=== PATIENT | female | born 1940 | race Hispanic/Latino ===

== ENCOUNTER 2021-01-09 14:18 | Outpatient (CLI) | payer MEDICARE, OTHER | END 2021-01-09 14:19 | disposition home or self-care (01) | LOC: CSHMAMMO 14:18 | PROVIDERS: ATTEND Internal Medicine | DX: Z12.31 Encounter for screening mammogram for malignant neoplasm of breast (principal); Z80.3 Family history of malignant neoplasm of breast | CPT/HCPCS: 77063; 77067 ==

== ENCOUNTER 2021-06-19 08:56 | Outpatient (CLI) | payer MEDICARE, OTHER ==
[2021-06-19 09:46] LABS: Estimated GFR-MDRD - POC Greater than 90
[2021-06-19] MEDS ORDERED: Iopamidol 300 61% 100 ML VIAL FS ONE (10:44)
== END 2021-06-19 08:57 | disposition home or self-care (01) ==
LOC: CSHCT 08:56
PROVIDERS: ATTEND Physician Assistant Medical
DX: R10.13 Epigastric pain (principal); R14.0 Abdominal distension (gaseous); K59.00 Constipation, unspecified; R10.31 Right lower quadrant pain; K44.9 Diaphragmatic hernia without obstruction or gangrene; N28.1 Cyst of kidney, acquired; K76.0 Fatty (change of) liver, not elsewhere classified
CPT/HCPCS: 74177; 82565; Q9967

== ENCOUNTER 2022-01-13 15:23 | Outpatient (CLI) | payer MEDICARE, OTHER | END 2022-01-13 15:24 | disposition home or self-care (01) | LOC: CSHMAMMO 15:23 | PROVIDERS: ATTEND Family Medicine | DX: Z12.31 Encounter for screening mammogram for malignant neoplasm of breast (principal); Z80.3 Family history of malignant neoplasm of breast | CPT/HCPCS: 77063; 77067 ==

== ENCOUNTER 2022-05-20 09:45 | Outpatient (CLI) | payer MEDICARE, OTHER | END 2022-05-20 09:46 | disposition home or self-care (01) | LOC: CSHULT 09:45 | PROVIDERS: ATTEND Family Medicine | DX: R10.11 Right upper quadrant pain (principal) | CPT/HCPCS: 76700 ==

== ENCOUNTER 2023-01-17 14:11 | Outpatient (CLI) | payer MEDICARE, OTHER | END 2023-01-17 14:12 | disposition home or self-care (01) | LOC: CSHMAMMO 14:11 | PROVIDERS: ATTEND Family Medicine | DX: Z12.31 Encounter for screening mammogram for malignant neoplasm of breast (principal); Z80.3 Family history of malignant neoplasm of breast | CPT/HCPCS: 77063; 77067 ==